=== PATIENT | female | born 1990 | race Two or more races ===

== ENCOUNTER 2024-06-19 16:57 | Emergency (ER) | payer SELFPAY ==
[~2024-06-19] VITALS: Ht 160 cm; Wt 83.1 kg
[2024-06-19 16:57] VITALS: BP 142/63; PULSE 76; RESP 16; O2SAT 97
--- NOTE | 2024-06-19 18:00 | ED.PDOC ---
GI ASSESSMENT HPI Comments 33 Y F, presents to the ED with CC of abdominal pain. Patient states, that she has been experiencing abdominal pain with associated symptoms of nausea and vomiting since 1500 today (06/19/24). Patient relays, that she took Pepto Bismol to try and alleviate symptoms; provided no relief. Patient denies dysuria, hematuria, dark stools, or diarrhea. Chief Complaint: Abdominal Pain Time Seen by MD: 17:50 Reviewed Notes: Nurses Notes, Medications, Allergies Allergies: Coded Allergies: NO KNOWN ALLERGIES (Unverified , 06/19/24) Home Meds Active Scripts Hydrocodone-Acetaminophen (Hydrocodone Bitartrate/AC 5-325 mg) 1 Tab Tab, 1 TAB PO Q8HP PRN for 6 Days, #18 TAB Prov:JIGNESH HARMON MD 06/19/24 Ondansetron Odt 4MG Tab (ZOFRAN PO) 4 Mg Tb, 4 MG PO Q8HP PRN for 5 Days, #15 TAB ODT TAB-DISSOLVE IN MOUTH, THEN SWALLOW Prov:JIGNESH HARMON MD 06/19/24 Pantoprazole Sodium Sesquihydr (Protonix) 40 Mg Tab, 40 MG PO DAILY, #30 TAB Prov:JIGNESH HARMON MD 06/19/24 Information Source: Patient Mode of Arrival: Ambulatory Timing: Hours Duration: Since onset Prehospital treatment: None Quality: Cramping Vomitus: Watery Stool: Normal Severity: None Recent: None Recent Hx of: None Pain Location: Diffuse Modifying Factors: Nothing Associated sign and symptoms: Nausea, Vomiting Past Medical History PAST MEDICAL HISTORY: Denies Surgical History: Denies all surgeries INSTALLATIONS INSPECTOR History: Unknown Family History Family History: Unknown Social History Smoker: Non-Smoker Alcohol: Occasionally Drugs: Marijuana Lives In: Home Constitutional: denies: chills, diaphoresis, fatigue, fever, malaise, sweats, weakness, others EENTM: denies: blurred vision, double vision, ear bleeding, ear discharge, ear drainage, ear pain, ear ringing, eye pain, eye redness, hearing loss, mouth pain, mouth swelling, nasal discharge, nose bleeding, nose congestion, nose pain, photophobia, tearing, throat pain, throat swelling, voice changes, others Respiratory: denies: cough, hemoptysis, orthopnea, SOB at rest, shortness of breath, SOB with excertion, stridor, wheezing, others Cardiovascular: denies: chest pain, dizzy spells, diaphoresis, Dyspnea on exertion, edema, irregular heart beat, left arm pain, lightheadedness, palpitations, PND, syncope, others Gastrointestinal: reports: abdominal pain, nausea, vomiting; denies: abdomen distended, blood streaked bowels, constipated, diarrhea, dysphagia, difficulty swallowing, hematemesis, melena, poor appetite, poor fluid intake, rectal bleeding, rectal pain, others Genitourinary: denies: abnormal vagina bleeding, burning, dyspareunia, dysuria, flank pain, frequency, hematuria, incontinence, pain, , vagina discharge, urgency, others Neurological: denies: dizziness, fainting, headache, left sided numbness, left sided weakness, numbness, paresthesia, pre-existing deficit, right sided numbness, right sided weakness, seizure, speech problems, tingling, tremors, weakness, others Musculoskeletal: denies: back pain, gout, joint pain, joint swelling, muscle pain, muscle stiffness, neck pain, others Integumetry: denies: bruises, change in color, change in hair/nails, dryness, laceration, lesions, lumps, rash, wounds, others Allergic/Immunocompromised: denies: Difficulty Healing, Frequent Infections, Hives, Itching, others Hematologic/Lymphatic: denies: anemia, blood clots, easy bleeding, easy bruising, swollen glands, others Endocrine: denies: excessive hunger, excessive sweating, excessive thirst, excessive urination, flushing, intolerance to cold, intolerance to heat, unexplained weight gain, unexplained weight loss, others Psychiatric: denies: anxiety, bipolar disorder, depression, hopeless, panic disorder, schizophrenia, sleepless, suicidal, others All Other Systems: Reviewed and Negative Physical Exam General Appearance: Mild Distress HEENT: Normal ENT Inspection, Pharynx Normal, TMs Normal Neck: Full Range of Motion, Non-Tender, Normal, Normal Inspection Respiratory: Chest Non-Tender, Lungs Clear, No Accessory Muscle Use, No Respiratory Distress, Normal Breath Sounds Cardiovascular: No Edema, No JVD, No Murmur, No Gallop, Normal Peripheral Pulses, Regular Rate/Rhythm Breast Exam: Deferred Gastrointestinal: Epigastric, No Organomegaly, No Pulsatile Mass, Normal Bowel Sounds, Soft, Tenderness Genitalia: Deferred Pelvic: Deferred Rectal: Deferred Extremities: No calf tenderness, Normal capillary refill, Normal inspection, Normal range of motion, Non-tender, No pedal edema Musculoskeletal : Apperance: Normal Neurologic: Alert, senior genetic counselor II-XII nml as Tested, No Motor Deficits, Normal Affect, Normal Mood, No Sensory Deficits Cerebellar Function: Normal Reflexes: Normal Skin: Dry, Normal Color, Warm Lymphatic: No Adenopathy Was a procedure done? Was a procedure done?: No GI differential Dx Differential Diagnosis: Bowel Obstruction, Gastritis/PUD, Gastroenteritis, Electrolyte Imbalance, Food Poisoning, Bacterial, Viral X-Ray, Labs, Meds, VS Vital Signs Date Time Temp Pulse Resp B/P (MAP) Pulse Ox O2 Delivery O2 Flow Rate FiO2 06/19/24 16:57 98.6 76 16 142/63 (89) 97 Lab Test 06/19/24 18:48 06/19/24 18:25 Range/Units White Blood Count 9.7 4.4-10.8 10^3/uL Red Blood Count 4.68 4.0-5.20 10^6/uL Hemoglobin 14.5 12.2-16.2 g/dL Hematocrit 41.8 36.0-46.0 % Mean Corpuscular Volume 89.4 80.0-100.0 fL Mean Corpuscular Hemoglobin 30.9 28.0-32.0 pg Mean Corpuscular Hemoglobin Concent 34.6 32.0-36.0 g/dL Red Cell Distribution Width 13.6 11.8-14.3 % Platelet Count 298 140-450 10^3/uL Mean Platelet Volume 6.5 L 6.9-10.8 fL Neutrophils (%) (Auto) 81.9 H 37.0-80.0 % Lymphocytes (%) (Auto) 15.8 10.0-50.0 % Monocytes (%) (Auto) 1.8 0.0-12.0 % Eosinophils (%) (Auto) 0.4 0.0-7.0 % Basophils (%) (Auto) 0.1 0.0-2.0 % Neutrophils # (Auto) 7.9 1.6-8.6 10 ^3/uL Lymphocytes # (Auto) 1.5 0.4-5.4 10 ^3/uL Monocytes # (Auto) 0.2 0-1.3 10 ^3/uL Eosinophils # (Auto) 0 0-0.8 10 ^3/uL Basophils # (Auto) 0 0-0.2 10 ^3/uL Nucleated Red Blood Cells 0.1 % Sodium Level 140 136-145 mmol/L Potassium Level 3.7 3.5-5.1 mmol/L Chloride Level 103 98-107 mmol/L Carbon Dioxide Level 29 20-31 mmol/L Anion Gap 8 5-15 Blood Urea Nitrogen 11 9-23 mg/dL Creatinine 0.97 0.550-1.02 mg/dL Glomerular Filtration Rate Calc 79 >90 mL/min BUN/Creatinine Ratio 11.3 10.0-20.0 Serum Glucose 118 H 74-106 mg/dL Calcium Level 10.6 H 8.7-10.4 mg/dL Total Bilirubin 0.5 0.2-1.0 mg/dL Aspartate Amino Transferase (AST) 24 13-40 U/L Alanine Aminotransferase (ALT) 39 7-40 U/L Alkaline Phosphatase 97 46-116 U/L Total Protein 7.7 5.7-8.2 g/dL Albumin 4.8 3.2-4.8 g/dL Lipase 46 12-53 U/L Urine Color Yellow Yellow Urine Clarity Turbid H Clear Urine pH 7.0 5.0-9.0 Urine Specific [place] 1.028 1.001-1.035 Urine Protein Trace H Negative Urine Ketones 1+ H Negative Urine Blood Negative Negative /uL Urine Nitrite Negative Negative Urine Bilirubin Negative Negative Urine Urobilinogen Normal Negative mg/dL Urine Leukocyte Esterase 1+ Negative /uL Urine RBC 2 0 - 4 /hpf Urine WBC 9 0 - 5 /hpf Urine Squamous Epithelial Cells Mod <5 /hpf Urine Bacteria None seen None Seen /hpf Urine Mucus Few None Seen Urine Glucose Normal Normal mg/dL US : FINDINGS: Liver and Biliary System: Diffuse increased echogenicity, normal size measuring 16.65 cm. No focal hepatic observations. No intrahepatic bile duct dilatation. The common duct measures 0.57 cm at the collette hepatis. The gallbladder is normal caliber and contains sludge. No gallbladder wall thickening. Sonographic Bell's sign is negative.. Pancreas: Not well seen due to overlying bowel gas Kidneys: The right kidney is 10.2 cm. No hydronephrosis, increased echogenicity, shadowing stone, or focal lesion. IMPRESSION: 1. Gallbladder sludge. 2. Hepatic steatosis. ATED BY: MARILIA ANGEL MD DICTATED DATE/TIME: 06/19/241899 SIGNED BY: MARILIA ANGEL MD SIGNED DATE/TIME: 06/19/241899 CC: At this time the urine test is positive for UTI The patient will be started on Macrobid The CBC and chemistry panel are within normal limits The patient was being discharged and will follow up with the primary care doctor Because of the gallbladder sludge, we did advise the patient to follow up with the primary care doctor for also possible surgery consult The patient understands it was discharged The patient was placed on Protonix as well as [place] and Zofran Images Reviewed?: Images reviewed and evaluated by me Time of 1ST Reevaluation: 18:20 Reevaluation 1ST: Unchanged Patient Education/Counseling: Diagnosis, Treatment, Prognosis, Need For Follow Up Family Education/Counseling: No Family Present Departure 1 Departure Time of Disposition: 21:43 Impression: Primary Impression: Urinary tract infection Qualified Codes: N30.00 - Acute cystitis without hematuria Additional Impression: Gallbladder sludge Disposition: 01 HOME / SELF CARE / HOMELESS Condition: Fair e-Prescriptions Hydrocodone-Acetaminophen (Hydrocodone Bitartrate/AC 5-325 mg) 1 Tab Tab 1 TAB PO Q8HP PRN for 6 Days, #18 TAB Prov: JIGNESH HARMON MD 06/19/24 Ondansetron Odt 4MG Tab (ZOFRAN PO) 4 Mg Tb 4 MG PO Q8HP PRN for 5 Days, #15 TAB ODT TAB-DISSOLVE IN MOUTH, THEN SWALLOW Prov: JIGNESH HARMON MD 06/19/24 Pantoprazole Sodium Sesquihydr (Protonix) 40 Mg Tab 40 MG PO DAILY, #30 TAB Prov: JIGNESH HARMON MD 06/19/24 Discharged With: Self Critical Care Note Critical Care Time?: No Stability Stability form required: No Heart Score Heart Score: Heart Score Response (Comments) Value History N/A 0 EKG N/A 0 Age N/A 0 Risk Factors N/A 0 Troponin N/A 0 Total 0 I personally scribed for JIGNESH HARMON MD ([email or web address]) on 06/19/24 at 17:59. Electronically submitted by Maris Cuellar ([email or web address]). I personally scribed for JIGNESH HARMON MD ([email or web address]) on 06/19/24 at 18:14. Electronically submitted by Maris Cuellar ([email or web address]). I personally scribed for JIGNESH HARMON MD ([email or web address]) on 06/19/24 at 19:27. Electronically submitted by Maris Cuellar ([email or web address]). JIGNESH HARMON MD Jun 19, 2024 17:59
--- NOTE | 2024-06-19 19:02 | DVH ---
ABDOMINAL ULTRASOUND CLINICAL HISTORY: Right upper quadrant pain TECHNIQUE: Multiple grayscale and color Doppler ultrasound images were obtained of the abdomen. WID: COMPARISON: None FINDINGS: Liver and Biliary System: Diffuse increased echogenicity, normal size measuring 16.65 cm. No focal hepatic observations. No intrahepatic bile duct dilatation. The common duct measures 0.57 cm at th e collette hepatis. The gallbladder is normal caliber and contains sludge. No gallbladder wall thicke dejan. Sonographic Bell's sign is negative.. Pancreas: Not well seen due to overlying bowel gas Kidneys: The right kidney is 10.2 cm. No hydronephrosis, increased echogenicity, shadowing stone, o r focal lesion. IMPRESSION: 1. Gallbladder sludge. 2. Hepatic steatosis.
[2024-06-19 19:21] LABS: Basophils # (auto) 0 10 ^3/uL (0-0.2); Basophils % (auto) 0.1 % (0.0-2.0); Eosinophils # (auto) 0 10 ^3/uL (0-0.8); Eosinophils % (auto) 0.4 % (0.0-7.0); Hematocrit 41.8 % (36.0-46.0); Hemoglobin 14.5 g/dL (12.2-16.2); Lymphocytes # (auto) 1.5 10 ^3/uL (0.4-5.4); Lymphocytes % (auto) 15.8 % (10.0-50.0); Mean Corpuscular Hemoglobin 30.9 pg (28.0-32.0); Mean Corpuscular Hgb Conc. 34.6 g/dL (32.0-36.0); Mean Corpuscular Volume 89.4 fL (80.0-100.0); Monocytes # (auto) 0.2 10 ^3/uL (0-1.3); Monocytes % (auto) 1.8 % (0.0-12.0); Neutrophils # (auto) 7.9 10 ^3/uL (1.6-8.6); Neutrophils % (auto) 81.9 % (37.0-80.0); Nucleated Red Blood Cells % 0.1 %; Platelet Count (auto) 298 10^3/uL (140-450); Red Blood Cells 4.68 10^6/uL (4.0-5.20); Red Cell Distribution Width 13.6 % (11.8-14.3); White Blood Cell 9.7 10^3/uL (4.4-10.8)
[2024-06-19 19:38] LABS: Alanine Aminotransferase 39 U/L (7-40); Alkaline Phosphatase 97 U/L (46-116); Anion Gap 8 (5-15); Aspartate Aminotransferase 24 U/L (13-40); BUN/Creatinine Ratio 11.3 (10.0-20.0); Blood Urea Nitrogen 11 mg/dL (9-23); Carbon Dioxide 29 mmol/L (20-31); Chloride 103 mmol/L (98-107); Lipase 46 U/L (12-53); Potassium 3.7 mmol/L (3.5-5.1); Sodium 140 mmol/L (136-145)
[2024-06-19 19:39] LABS: Bilirubin, Total 0.5 mg/dL (0.2-1.0); Total Protein 7.7 g/dL (5.7-8.2)
[2024-06-19 19:40] LABS: Albumin 4.8 g/dL (3.2-4.8); Calcium 10.6 mg/dL (8.7-10.4); Glucose 118 mg/dL (74-106)
[2024-06-19 20:08] LABS: Urine Bacteria None Seen /hpf (None Seen)
[2024-06-19 20:37] LABS: Urine Blood Negative /uL (Negative); Urine Clarity Turbid (Clear); Urine Color Yellow (Yellow); Urine Mucus FEW (None Seen); Urine Protein, UAD TRACE (Negative); Urine Specific Gravity 1.028 (1.001-1.035); Urine Squamous Epithelial Cell MOD /hpf (<5); Urine Urobilinogen Normal (Negative); Urine WBC 9 /hpf (0 - 5)
[2024-06-19] MEDS ORDERED: PANT40TA2 PO (21:41)
[2024-06-19] MEDS ORDERED: HYDR-4902 PO (21:41)
[2024-06-19] MEDS ORDERED: ZOFR4T PO (21:41)
[2024-06-19] MEDS: MORPHINE SULFATE 4 MG/ML SYR/VIAL IV ONE (21:59)
[2024-06-19] MEDS: PANTOPRAZOLE 40 MG/10 ML VIAL INJ IV ONE (21:59)
[2024-06-19] MEDS: PROCHLORPERAZINE EDISYLATE 5 MG/ML 2ML VIAL IV ONE (21:59)
[2024-06-19] MEDS: SODIUM CHLORIDE 0.9% 500 ML IVB ONE (22:00)
== END 2024-06-19 22:00 | disposition home or self-care (01) ==
LOC: ER 16:57
DX: N39.0 Urinary tract infection, site not specified (principal); K82.8 Other specified diseases of gallbladder; F12.90 Cannabis use, unspecified, uncomplicated; Z79.899 Other long term (current) drug therapy
CPT/HCPCS: 36415; 76705; 80053; 81001; 83690; 85025